=== PATIENT | female | born 1980 | race Caucasian/White ===

== ENCOUNTER 2021-05-27 15:18 | Emergency (ER) | payer SELFPAY ==
--- NOTE | 2021-05-27 15:21 | ED.SKABFB ---
HPI - Skin/Abscess/Foreign Bdy General Chief complaint: Skin/Abscess/Foreign Body Stated complaint: bump under left arm Time Seen by Provider: 05/27/21 15:21 Source: patient Mode of arrival: ambulatory Limitations: no limitations History of Present Illness HPI narrative: Ms. Jose Warren is a 40-year-old female patient presenting to the clinic today with complaints of a bump under her left arm x4 weeks. She reports that it has been draining off and on with yellow discharge and blood but it continues to refill. She denies any fever or chills. Related Data Allergies Allergy/AdvReac Type Severity Reaction Status Date / Time No Known Allergies Allergy Verified 05/27/21 15:30 Review of Systems Review of Systems: Pertinent positives per HPI. Patient denies any fever, chills, rash, headache, visual changes, dizziness, cough, runny nose, sore throat, shortness of breath, chest pain, palpitations, nausea, vomiting, diarrhea, constipation, abdominal pain, or any urinary issues. PMFSH Comments At the time of my signature, I reviewed and agree with the nursing past medical, surgical, social, and family history. There is no relevant family history pertinent to the patient complaint. Exam Narrative: General: Well-developed, well nourished, in no apparent distress Head: Normocephalic, atraumatic. Cardio: Regular rate and rhythm, s1 and s2 normal, no murmur appreciated. Resp: Clear to auscultation bilaterally, no rhonchi, rales, wheezing or rubs. Integumentary: [place], warm, and dry, intact without lesion, no rashes. 1 x 2 cm subcutaneous abscess to the left anterior axilla with white pustule in the center. Mild redness surrounding abscess. Tender to touch with moderate fluctuance. Course Course Emergency Course: Portions of this record may have been created with voice recognition software. Level of Care: Express Care Visit Vital Signs Vital signs: Vital signs reviewed Procedures Abscess I/D Left axilla: Date of Incision: 05/27/21 Side (if applicable): left Local Anesthetic: lidocaine 1% (0.5 mL) Amount of anesthesia used (mL): 0.5 Amount of fluid expressed (mL): 3 Irrigation: No Packing used?: none I&D Results: Pus and Blood Abcess I&D Additional Comments: Verbal consent obtained for incision and drainage. Risk and benefits explained and patient voiced understanding. Area was cleansed with ChloraPrep. Area was prepped and draped using sterile technique. 25 gauge needle was then used to instill (0.5) ml of lidocaine with out epi into the abscess edges. Patient tolerated well and anesthesia was appropriate. An 11 blade scalpel was then used to make a 0.5cm incision over the abscess. Yellow bloody exudate expressed from cavity. Wound culture obtained and sent to lab. Patient tolerated procedure well. Sterile dressing applied. MDM - Skin/Abscess/Foreign Bdy MDM Narrative Medical decision making narrative: At the time of visit patient is resting comfortably on the exam table. Lump was assessed and appeared to be an abscess. Risk and benefits of incision and drainage discussed and patient agreed for incision and drainage. Incision and drainage performed in the clinic. Moderate yellow discharge with blood expressed from abscess. Will send prescription for Bactrim DS 1 tab twice a day for 7 days. Patient voiced understanding of discharge instructions. Differential Diagnosis Differential diagnosis: Likely abscess of skin or subcutaneous tissue, cellulitis and insect bites Discharge Plan Discharge Clinical Impression: Abscess of skin or subcutaneous tissue Qualifiers: Site of cutaneous abscess: extremity Site of cutaneous abscess of extremity: axilla Laterality: left Qualified Code(s): L02.412 - Cutaneous abscess of left axilla Patient Disposition: Home, Self-Care Condition: Stable Instructions: Antibiotic Form, Abscess Incision and Drainage (DC) Additional Instructions:
[2021-05-27 15:25] VITALS: BP 120/56; PULSE 87; RESP 16; TEMP 36.9; O2SAT 100
--- NOTE | 2021-05-27 15:52 | PC.NURSE ---
Lidocaine double verified by DEEPTI Iraheta
== END 2021-05-27 15:58 | disposition home or self-care (01) ==
PROVIDERS: Emergency Provider Nurse Practitioner Family
DX: L02.412 Cutaneous abscess of left axilla (principal)
CPT/HCPCS: 10060; 87070; 87205; 99213; G0463

== ENCOUNTER 2022-05-05 18:50 | Emergency (ER) | payer SELFPAY ==
[2022-05-05 19:03] VITALS: BP 114/68; PULSE 80; RESP 16; TEMP 36.6; O2SAT 100
[2022-05-05 19:29] VITALS: BP 113/69; PULSE 69; RESP 16; O2SAT 100
--- NOTE | 2022-05-05 19:40 | ED.GENADULT ---
HPI - General Adult General Chief complaint: Skin/Abscess/Foreign Body Stated complaint: Rash all over body, itching, dry mouth Time Seen by Provider: 05/05/22 19:15 History of Present Illness HPI narrative: Is a 41-year-old Lebanese-speaking female presenting to ED with an urticarial rash. The rash started yesterday it is located over her right flank and her thighs. She denies any history of allergic reactions. She denies any new detergents creams or perfumes. No known trigger. She denies nausea vomiting diarrhea. She denies shortness of breath or sensation of throat swelling. Patient has been taking Benadryl which has been helping with the itching but it has caused her to become more sleepy. Patient denies other complaints at this time. Related Data Allergies Allergy/AdvReac Type Severity Reaction Status Date / Time No Known Allergies Allergy Verified 05/05/22 19:24 [facility] Past Medical History Medical History H/O cholecystitis Surgical History Surgical History H/O section Social History Social History (Updated 05/05/22 @ 19:42 by Drew Butts MD) Social History: drinks rarely, tobacco cigarettes rarely Exam Narrative: APPEARANCE: No apparent distress. Head: atraumatic. EYES: EOMI, NOSE: Atraumatic NECK: Trachea midline RESPIRATORY: No increased rate of breathing CARDIOVASCULAR: RRR, ABDOMINAL: Non-distended MUSCULOSKELETAl: No obvious deformities NEURO: Alert. Moving 4/4 extremities SKIN:: urticarial rash over the right flank And thighs. No erythema or breaks in the skin. PSYCHIATRIC: Normal affect Course Vital Signs Vital signs: Vital Signs Temperature 98 F 05/05/22 19:03 Pulse Rate 80 05/05/22 19:03 Respiratory Rate 16 05/05/22 19:03 Blood Pressure 114/68 05/05/22 19:03 Pulse Oximetry 100 05/05/22 19:03 Oxygen Delivery Room Air 05/05/22 19:03 Temperature 98 F 05/05/22 19:03 Pulse Rate 69 05/05/22 19:29 Respiratory Rate 16 05/05/22 19:29 Blood Pressure 113/69 05/05/22 19:29 Pulse Oximetry 100 05/05/22 19:29 Oxygen Delivery Room Air 05/05/22 19:03 Medical Decision Making MDM Narrative Medical decision making narrative: -Presentation: 41-year-old female presenting with urticarial rash -DDX includes but is not limited to: idiopathic urticaria, allergic reaction -Co-morbidities/factors complicating care: Lebanese speaker -Social determinants of health: lives at home with her boyfriend's son and daughter, works selling food -External Chart Review: none -Hx from independent Sources: daughter at bedside -Discussion of Management/Consultants: none -Independent interpretation of studies: none -Dx tests considered but not ordered: lab work, not indicated -Procedures: none -Interventions: 10 mg IM dexamethasone, 50 mg p.o. Benadryl, 40 mg p.o. Pepcid -Shared decision making / Disposition: patient fears that be having a urticarial skin reaction. No evidence of anaphylaxis. She will be treated symptomatically. primary care follow-up -RX: Claritin 10 mg, Benadryl 25 mg Vital Signs Vital Signs: Vital Signs Temperature 98 F 05/05/22 19:03 Pulse Rate 80 05/05/22 19:03 Respiratory Rate 16 05/05/22 19:03 Blood Pressure 114/68 05/05/22 19:03 Pulse Oximetry 100 05/05/22 19:03 Oxygen Delivery Room Air 05/05/22 19:03 Temperature 98 F 05/05/22 19:03 Pulse Rate 69 05/05/22 19:29 Respiratory Rate 16 05/05/22 19:29 Blood Pressure 113/69 05/05/22 19:29 Pulse Oximetry 100 05/05/22 19:29 Oxygen Delivery Room Air 05/05/22 19:03 Discharge Plan Discharge Clinical Impression: Urticaria Patient Disposition: Home, Self-Care Condition: Stable Instructions: Antibiotic Form, Urticaria (ED) Additional Instructions: You were seen in the emergency department for
[2022-05-05] MEDS: FAMOTIDINE 20 MG TABLET 40 MG PO (20:42)
[2022-05-05] MEDS: diphenhydrAMINE HCl CAP 25 MG CAPSULE 50 MG PO (20:43)
== END 2022-05-05 20:48 | disposition home or self-care (01) ==
PROVIDERS: Emergency Provider Emergency Medicine
DX: L50.9 Urticaria, unspecified (principal)
CPT/HCPCS: 96372; 99283; A9270; J1100

== ENCOUNTER 2023-07-12 15:33 | Emergency (ER) | payer SELFPAY ==
[2023-07-12 15:48] VITALS: BP 123/63; PULSE 73; RESP 16; TEMP 37.3; O2SAT 99
--- NOTE | 2023-07-12 16:32 | ED.GENADULT ---
HPI - General Adult General Chief complaint: Skin/Abscess/Foreign Body Stated complaint: lump left groin area, itching and painful Time Seen by Provider: 07/12/23 16:33 Source: patient, RN notes reviewed and old records reviewed Mode of arrival: ambulatory Limitations: no limitations History of Present Illness HPI narrative: 42-year-old female presents to the [facility] with an abscess that is painful to the left inner upper thigh, groin area. States she has had these before in the axilla area. No treatment prior to arrival. States it has been going on a couple of days Related Data Allergies Allergy/AdvReac Type Severity Reaction Status Date / Time No Known Allergies Allergy Verified 07/12/23 15:55 Review of Systems Review of Systems: All systems reviewed & are unremarkable except as noted in HPI and below Constitutional: Constitutional: Reports no additional constitutional complaints Eyes: Eyes: Reports no additional eye complaints ENT: Reports system reviewed and no additional complaints, except as documented Cardiovascular: Cardiovascular: Reports no additional cardiovascular complaints, Denies chest pain and Denies dyspnea Respiratory: Respiratory: Reports no additional respiratory complaints, Denies chest congestion, Denies cough and Denies dyspnea Gastrointestinal: Gastrointestinal: Reports no additional gastrointestinal complaints, Denies abdominal pain, Denies nausea and Denies vomiting Musculoskeletal: Musculoskeletal: Reports no additional musculoskeletal complaints Integumentary/Breasts: Skin/Breast: Reports as per HPI Neurologic: Reports system reviewed and no additional complaints, except as documented Psychiatric: Psychiatric: Reports no additional psychiatric complaints Allergic/Immunologic: Allergic/Immunologic: Reports no additional allergic/immunologic complaints PMFSH Past Medical History Medical History H/O cholecystitis Surgical History Surgical History H/O section Social History Social History Social History: drinks rarely, tobacco cigarettes rarely Comments At the time of my signature, I reviewed and agree with the nursing past medical, surgical, social, and family history. There is no relevant family history pertinent to the patient complaint. Exam Const: General: cooperative, healthy appearing, comfortable, no acute distress, well developed, alert and well nourished Nutritional Appearance: well nourished Orientation/consciousness: patient oriented x3 Limitations: no limitations HENMT: Head: normal to inspection Ears: hearing grossly normal bilaterally and external ears normal Face/Nose/Sinus: Normal external nose present, Normal nares present, Normal nasal mucous membranes and turbinates present, normal facial exam and face symmetric Face and sinus: normal facial exam and face symmetric Eyes: General: appearance normal, both eyes and all related structures Alignment and Position: alignment normal Periorbital: periorbital findings normal Pupils: Equal, round and reactive pupils present EOM: EOMs intact bilaterally Neck: Neck: normal visual inspection, full ROM, no lymphadenopathy and no meningeal signs Chest: Chest palpation & inspection: normal inspection of the chest Resp: Effort & Inspection: normal respiratory effort and able to speak in complete sentences Auscultation: clear to auscultation bilaterally, no crackles, no rales, no rhonchi and no wheezes Cardio: Rate: regular rate Rhythm: regular rhythm GI: GI Palp: No abdominal tenderness Skin: General skin exam: normal color and no rashes or lesions noted Lesions: no lesions Rashes: no rashes Trauma: no lacerations or abrasions Wounds: no wounds Other: 2 x 1/2 raised pink area, fluctuant. Left inner groin thigh area Neuro: Gene
[2023-07-12] MEDS: LIDOCAINE HCL 1% LOCAL INJ 2 ML AMPUL 4 ML INFILTRATE (16:43)
== END 2023-07-12 16:58 | disposition home or self-care (01) ==
PROVIDERS: Emergency Provider Nurse Practitioner
DX: L02.214 Cutaneous abscess of groin (principal)
CPT/HCPCS: 10060; 87070; 87075; 87076; 87077; 87185; 87205; 99213; G0463

== ENCOUNTER 2024-06-14 00:22 | Emergency (ER) | payer OTHER, SELFPAY ==
--- OUTSIDE RECORDS SUMMARY | 2024-06-14 00:25 | XMS_ITS | Continuity of Care Document ---
Author Name Stefania Phillips Address [address] [facility] [place] [address] Organization Unknown Address [address] [place], [place] [id number] [place] [address] Medications No known medications Problems No known problems
--- OUTSIDE RECORDS SUMMARY | 2024-06-14 00:25 | XMS_ITS | Continuity of Care Document ---
Author Name Stefania Phillips Address [address] [facility] [place] [address] Organization Unknown Address [address] [place], [place] [id number] [place] [address] Medications No known medications Problems No known problems
[2024-06-14] MEDS: HYDROmorphone HCL INJ (*CRX) 2 MG/ML VIAL 1 MG IM (00:36)
[2024-06-14] MEDS: TETANUS,DIPHTHERIA,AC PERTUSSIS ADULT (0.5 ML) BOOSTRIX (00:36)
[2024-06-14 00:43] VITALS: BP 136/75; PULSE 79; RESP 16; TEMP 37.2; O2SAT 100
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
[2024-06-14] MEDS: HYDROcodone/acetaminophen (*CRX) 5-325 MG TABLET 1 TAB PO (01:23)
[2024-06-14] MEDS: KETOROLAC 30 MG/ML VIAL (*BKC) IM (01:23)
[2024-06-14 02:13] VITALS: O2SAT 100
== END 2024-06-14 02:48 | disposition home or self-care (01) ==
PROVIDERS: Emergency Provider Physician Assistant
DX: T23.232A Burn of second degree of multiple left fingers (nail), not including thumb, initial encounter (principal); T23.221A Burn of second degree of single right finger (nail) except thumb, initial encounter; T23.171A Burn of first degree of right wrist, initial encounter; T23.172A Burn of first degree of left wrist, initial encounter; S05.01XA Injury of conjunctiva and corneal abrasion without foreign body, right eye, initial encounter; T31.0 Burns involving less than 10% of body surface; Z23 Encounter for immunization; X08.8XXA Exposure to other specified smoke, fire and flames, initial encounter; W40.1XXA Explosion of explosive gases, initial encounter
CPT/HCPCS: 16000; 16020; 90471; 90715; 96372; 99284; A9270; J1171; J1885